=== PATIENT | male | born 2000 | race African-American/Black ===

== ENCOUNTER 2018-09-20 05:27 | Emergency (ER) | payer MEDICAID ==
[~2018-09-20] VITALS: Ht 175.3 cm; Wt 69.0 kg
[2018-09-20 05:43] VITALS: BP 136/71
[2018-09-20] MEDS ORDERED: PREDNISONE 20MG TABLET PO STA (05:58)
[2018-09-20] MEDS ORDERED: IPRATROPIUM BROMIDE (0.02%) 0.5MG/2.5ML NEB HHN STA (05:58)
[2018-09-20] MEDS ORDERED: ALBUTEROL (0.083%) 2.5MG/3ML NEB HHN STA (05:58)
== END 2018-09-20 07:07 | disposition home or self-care (01) ==
LOC: ER 05:27
DX: J45.901 Unspecified asthma with (acute) exacerbation (principal)
CPT/HCPCS: 94640; 99283; J7512; J7611; Z7610

== ENCOUNTER 2018-12-07 05:11 | Emergency (ER) | payer MEDICAID ==
[~2018-12-07] VITALS: Ht 175.3 cm; Wt 61.0 kg
[2018-12-07] MEDS ORDERED: PREDNISONE 20MG TABLET PO STA (06:12)
[2018-12-07] MEDS ORDERED: IPRATROPIUM BROMIDE (0.02%) 0.5MG/2.5ML NEB HHN STA (06:12)
[2018-12-07] MEDS ORDERED: ALBUTEROL (0.083%) 2.5MG/3ML NEB HHN STA (06:12)
[2018-12-07 09:19] VITALS: BP 116/76
== END 2018-12-07 09:20 | disposition home or self-care (01) ==
LOC: ER 05:11
DX: J45.901 Unspecified asthma with (acute) exacerbation (principal)
CPT/HCPCS: 94644; 99285; J7512; J7611; Z7610

== ENCOUNTER 2018-12-17 15:03 | Emergency (ER) | payer MEDICAID ==
[~2018-12-17] VITALS: Ht 177.8 cm; Wt 63.0 kg
[2018-12-17] MEDS ORDERED: ALBUTEROL (0.083%) 2.5MG/3ML NEB HHN STA (16:01)
[2018-12-17] MEDS ORDERED: IPRATROPIUM BROMIDE (0.02%) 0.5MG/2.5ML NEB HHN STA (16:01)
[2018-12-17] MEDS ORDERED: PREDNISONE 20MG TABLET PO STA (16:01)
[2018-12-17 17:12] VITALS: BP 122/77
== END 2018-12-17 17:13 | disposition home or self-care (01) ==
LOC: ER 15:03
DX: J45.901 Unspecified asthma with (acute) exacerbation (principal)
CPT/HCPCS: 94644; 99285; J7512; J7611; Z7610

== ENCOUNTER 2019-03-05 09:18 | Emergency (ER) | payer MEDICAID ==
[~2019-03-05] VITALS: Ht 177.8 cm; Wt 60.0 kg
[2019-03-05] MEDS ORDERED: IPRATROPIUM BROMIDE (0.02%) 0.5MG/2.5ML NEB HHN STA (11:24)
[2019-03-05] MEDS ORDERED: ALBUTEROL (0.083%) 2.5MG/3ML NEB HHN STA (11:24)
[2019-03-05] MEDS ORDERED: METHYLPREDNISOLONE SOD SUCC 125 MG/2 ML VIAL IM STA (11:24)
[2019-03-05 12:40] VITALS: BP 123/71
== END 2019-03-05 12:30 | disposition home or self-care (01) ==
LOC: ER 09:18
DX: J45.901 Unspecified asthma with (acute) exacerbation (principal)
CPT/HCPCS: 96372; 99283; J2930; J7611

== ENCOUNTER 2019-04-19 04:55 | Emergency (ER) | payer MEDICAID ==
[~2019-04-19] VITALS: Ht 175.3 cm; Wt 66.0 kg
[2019-04-19 06:21] VITALS: BP 106/73
== END 2019-04-19 06:22 | disposition home or self-care (01) ==
LOC: ER 04:55
DX: J45.901 Unspecified asthma with (acute) exacerbation (principal)
CPT/HCPCS: 99283

== ENCOUNTER 2019-05-05 20:40 | Emergency (ER) | payer MEDICAID ==
[~2019-05-05] VITALS: Ht 175.3 cm; Wt 68.0 kg
[2019-05-05] MEDS ORDERED: IPRATROPIUM BROMIDE (0.02%) 0.5MG/2.5ML NEB HHN STA (22:08)
[2019-05-05] MEDS ORDERED: ALBUTEROL (0.083%) 2.5MG/3ML NEB HHN STA (22:08)
[2019-05-05] MEDS ORDERED: PREDNISONE 20MG TABLET PO STA (22:08)
[2019-05-05] MEDS ORDERED: IPRATROPIUM/ALBUTEROL 0.5-3(2.5)MG/3ML NEB ONE (22:22)
[2019-05-05] MEDS ORDERED: ALBUTEROL (0.5%) 2.5MG/0.5ML NEB HHN ONE (22:22)
[2019-05-05 23:55] VITALS: BP 122/89
== END 2019-05-05 23:55 | disposition home or self-care (01) ==
LOC: ER 20:40
DX: J45.901 Unspecified asthma with (acute) exacerbation (principal)
CPT/HCPCS: 94644; 99285; J7512; J7610; Z7610

== ENCOUNTER 2019-06-04 14:26 | Emergency (ER) | payer MEDICAID ==
[~2019-06-04] VITALS: Ht 175.3 cm; Wt 64.0 kg
[2019-06-04] MEDS ORDERED: IPRATROPIUM/ALBUTEROL 0.5-3(2.5)MG/3ML NEB HHN ONE (15:45)
[2019-06-04] MEDS ORDERED: LIDOCAINE HCL 1% 20ML VIAL (Pyxis) INJ INFIL ONE (15:45)
[2019-06-04] MEDS ORDERED: PENICILLIN G BENZATHINE 2,400,000 UNITS/4ML SYR IM ONE (15:45)
[2019-06-04] MEDS ORDERED: AZITHROMYCIN 500 MG TABLET PO ONE (15:45)
[2019-06-04] MEDS ORDERED: CEFTRIAXONE SODIUM 250 MG/VIAL IM ONE (15:45)
[2019-06-04 16:39] VITALS: BP 153/86
== END 2019-06-04 16:39 | disposition home or self-care (01) ==
LOC: ER 14:26
DX: A53.9 Syphilis, unspecified (principal); N34.2 Other urethritis; J45.901 Unspecified asthma with (acute) exacerbation
CPT/HCPCS: 94640; 96372; 99284; J0561; J0696; J3490; J7610; Z7610

== ENCOUNTER 2019-06-27 14:44 | Emergency (ER) | payer SELFPAY ==
[~2019-06-27] VITALS: Ht 175.3 cm; Wt 62.0 kg
[2019-06-27 14:53] VITALS: BP 112/62
== END 2019-06-27 15:22 | disposition home or self-care (01) ==
LOC: ER 14:44
DX: J45.909 Unspecified asthma, uncomplicated (principal)
CPT/HCPCS: 99282

== ENCOUNTER 2020-02-17 19:27 | Emergency (ER) | payer MEDICAID ==
[~2020-02-17] VITALS: Ht 177.8 cm; Wt 63.0 kg
[2020-02-17 20:21] VITALS: BP 126/65
== END 2020-02-17 20:22 | disposition home or self-care (01) ==
LOC: ER 19:27
DX: J45.909 Unspecified asthma, uncomplicated (principal); Z76.0 Encounter for issue of repeat prescription
CPT/HCPCS: 99283

== ENCOUNTER 2020-03-01 21:01 | Emergency (ER) | payer MEDICAID ==
[~2020-03-01] VITALS: Ht 177.8 cm; Wt 64.0 kg
[2020-03-01 22:28] VITALS: BP 127/82
== END 2020-03-01 22:30 | disposition home or self-care (01) ==
LOC: ER 21:01
DX: Z76.0 Encounter for issue of repeat prescription (principal); J45.909 Unspecified asthma, uncomplicated
CPT/HCPCS: 99283

== ENCOUNTER 2020-05-29 10:21 | Emergency (ER) | payer MEDICAID ==
[~2020-05-29] VITALS: Ht 177.8 cm; Wt 69.0 kg
[2020-05-29] MEDS ORDERED: LIDOCAINE HCL 1% 20ML VIAL (Pyxis) INJ INFIL ONE (11:00)
[2020-05-29] MEDS ORDERED: CEFTRIAXONE SODIUM 500 MG/VIAL IM ONE (11:00)
[2020-05-29] MEDS ORDERED: DOXYCYCLINE HYCLATE 100MG CAPSULE PO ONE (11:00)
[2020-05-29 11:16] LABS: CLARITY URINE CLEAR (CLEAR); COLOR URINE YELLOW (YELLOW); KETONES URINE NEGATIVE (NEGATIVE); LEUKOCYTE ESTERASE URINE NEGATIVE (NEGATIVE); NITRITE URINE NEGATIVE (NEGATIVE); OCCULT BLOOD URINE NEGATIVE (NEGATIVE); PROTEIN URINE NEGATIVE (NEGATIVE); SPECIFIC GRAVITY URINE 1.006 (1.005-1.030); UROBILINOGEN URINE 0.2 E.U./dL (0.2-1.0)
[2020-05-29] MEDS ORDERED: ALBU6.7H9 INH (11:22)
[2020-05-29] MEDS ORDERED: DOXY100C2 MT (11:22)
[2020-05-29 11:33] VITALS: BP 112/78
[2020-05-29] MEDS ORDERED: DOXY100C42 MT (22:28)
[2020-06-02 04:07] LABS: NEISSERIA GONORRHOEAE NAA Negative (Negative)
== END 2020-05-29 11:36 | disposition home or self-care (01) ==
LOC: ER 10:21
DX: Z20.2 Contact with and (suspected) exposure to infections with a predominantly sexual mode of transmission (principal); J45.909 Unspecified asthma, uncomplicated; Z76.0 Encounter for issue of repeat prescription
CPT/HCPCS: 81003; 86592; 87491; 87591; 99283; J3490; J0696

== ENCOUNTER 2020-05-29 22:13 | Emergency (ER) | payer MEDICAID ==
[~2020-05-29] VITALS: Ht 175.3 cm; Wt 68.0 kg
[~2020-05-29 22:13] MED LIST: ALBU6.7H9 INH; DOXY100C2 MT
[2020-05-29] MEDS ORDERED: DOXY100C42 MT (22:28)
[2020-05-29 22:39] VITALS: BP 110/61
== END 2020-05-29 22:39 | disposition home or self-care (01) ==
LOC: ER 22:13
DX: Z00.00 Encounter for general adult medical examination without abnormal findings (principal); Z79.899 Other long term (current) drug therapy; J45.909 Unspecified asthma, uncomplicated
CPT/HCPCS: 99282

== ENCOUNTER 2020-10-19 05:11 | Emergency (ER) | payer MEDICAID ==
[~2020-10-19 05:11] MED LIST changes: +DOXY100C42 MT
== END 2020-10-19 06:16 | disposition left against medical advice (07) ==
LOC: ER 05:33
DX: Z53.21 Procedure and treatment not carried out due to patient leaving prior to being seen by health care provider (principal)

== ENCOUNTER 2020-10-19 23:13 | Emergency (ER) | payer MEDICAID | END 2020-10-20 02:09 | disposition left against medical advice (07) | LOC: ER 23:13 | DX: Z53.21 Procedure and treatment not carried out due to patient leaving prior to being seen by health care provider (principal) ==

== ENCOUNTER 2020-11-02 00:09 | Emergency (ER) | payer MEDICAID ==
[~2020-11-02] VITALS: Ht 177.8 cm; Wt 69.0 kg
[2020-11-02 00:36] VITALS: BP 117/58
[2020-11-02] MEDS ORDERED: ALBU6.7H9 INH (00:36)
== END 2020-11-02 00:48 | disposition home or self-care (01) ==
LOC: ER 00:09
DX: J45.909 Unspecified asthma, uncomplicated (principal); Z76.0 Encounter for issue of repeat prescription; Z79.899 Other long term (current) drug therapy
CPT/HCPCS: 99283

== ENCOUNTER 2020-12-16 21:45 | Emergency (ER) | payer MEDICAID ==
[~2020-12-16] VITALS: Ht 175.3 cm; Wt 66.0 kg
[~2020-12-16 21:45] MED LIST changes: +DOXY-326 MT; -DOXY100C2 MT; -DOXY100C42 MT; +DOXY100C5 MT
[2020-12-16] MEDS ORDERED: ALBU6.7H9 INH (22:56)
[2020-12-16 23:00] VITALS: BP 121/71
== END 2020-12-16 23:12 | disposition home or self-care (01) ==
LOC: ER 21:45
DX: Z76.0 Encounter for issue of repeat prescription (principal); J45.909 Unspecified asthma, uncomplicated
CPT/HCPCS: 99283

== ENCOUNTER 2021-01-18 21:52 | Emergency (ER) | payer MEDICAID ==
[~2021-01-18] VITALS: Ht 175.3 cm; Wt 66.0 kg
[2021-01-18 22:15] VITALS: BP 105/73
[2021-01-18] MEDS ORDERED: ALBU6.7H15 INH (22:25)
== END 2021-01-18 22:27 | disposition home or self-care (01) ==
LOC: ER 21:52
DX: J45.909 Unspecified asthma, uncomplicated (principal); Z79.899 Other long term (current) drug therapy
CPT/HCPCS: 99283

== ENCOUNTER 2021-03-30 18:16 | Emergency (ER) | payer MEDICAID ==
[~2021-03-30] VITALS: Ht 172.7 cm; Wt 64.0 kg
[~2021-03-30 18:16] MED LIST changes: +ALBU6.7H15 INH
[2021-03-30 18:19] VITALS: BP 117/82
[2021-03-30] MEDS ORDERED: ALBU6.7H9 INH (18:45)
== END 2021-03-30 18:55 | disposition home or self-care (01) ==
LOC: ER 18:16
DX: Z76.0 Encounter for issue of repeat prescription (principal); J45.909 Unspecified asthma, uncomplicated
CPT/HCPCS: 99281

== ENCOUNTER 2021-07-19 03:47 | Emergency (ER) | payer MEDICAID ==
[~2021-07-19] VITALS: Ht 175.3 cm; Wt 60.6 kg
[2021-07-19 03:59] VITALS: BP 114/83
[2021-07-19] MEDS ORDERED: ALBU6.7H15 INH (04:02)
== END 2021-07-19 04:00 | disposition home or self-care (01) ==
LOC: ER 03:47
DX: Z76.0 Encounter for issue of repeat prescription (principal); J45.909 Unspecified asthma, uncomplicated
CPT/HCPCS: 99283

== ENCOUNTER 2021-08-18 02:11 | Emergency (ER) | payer MEDICAID ==
[~2021-08-18] VITALS: Ht 177.8 cm; Wt 60.9 kg
[2021-08-18 02:22] VITALS: BP 123/58
== END 2021-08-18 08:43 | disposition left against medical advice (07) ==
LOC: ER 02:11
DX: Z53.21 Procedure and treatment not carried out due to patient leaving prior to being seen by health care provider (principal)

== ENCOUNTER 2021-10-22 12:00 | Emergency (ER) | payer MEDICAID ==
[~2021-10-22] VITALS: Ht 177.8 cm; Wt 66.0 kg
[2021-10-22 12:04] VITALS: BP 107/74
[2021-10-22] MEDS ORDERED: LIDOCAINE HCL 1% 20ML VIAL (Pyxis) INJ INFIL ONE (14:00)
[2021-10-22] MEDS ORDERED: CEFTRIAXONE SODIUM 500 MG/VIAL IM ONE (14:00)
[2021-10-22] MEDS ORDERED: DOXY-326 MT (14:14)
[2021-10-22] MEDS ORDERED: ALBU6.7H9 INH (14:14)
[2021-10-25 04:10] LABS: NEISSERIA GONORRHOEAE NAA Negative (Negative)
== END 2021-10-22 15:24 | disposition home or self-care (01) ==
LOC: ER 12:00
DX: Z11.3 Encounter for screening for infections with a predominantly sexual mode of transmission (principal); Z76.0 Encounter for issue of repeat prescription; J45.909 Unspecified asthma, uncomplicated
CPT/HCPCS: 87491; 87591; 96372; 99283; J0696; J3490

== ENCOUNTER 2022-01-27 19:01 | Emergency (ER) | payer MEDICAID ==
[~2022-01-27] VITALS: Ht 175.3 cm; Wt 65.0 kg
[~2022-01-27 19:01] MED LIST changes: +ALBU6.7H3 INH; -ALBU6.7H9 INH
[2022-01-28] MEDS ORDERED: CEFTRIAXONE SODIUM 500 MG/VIAL IM ONE (00:15)
[2022-01-28] MEDS ORDERED: LIDOCAINE HCL 1% 20ML VIAL (Pyxis) INJ INFIL ONE (00:15)
[2022-01-28] MEDS ORDERED: DOXY100T28 PO (00:33)
[2022-01-28 00:43] LABS: CLARITY URINE CLOUDY (CLEAR); COLOR URINE YELLOW (YELLOW); KETONES URINE TRACE (NEGATIVE); LEUKOCYTE ESTERASE URINE TRACE (NEGATIVE); NITRITE URINE NEGATIVE (NEGATIVE); OCCULT BLOOD URINE NEGATIVE (NEGATIVE); PROTEIN URINE TRACE (NEGATIVE); SPECIFIC GRAVITY URINE 1.033 (1.005-1.030)
[2022-01-28 01:00] VITALS: BP 101/78
[2022-01-31 04:09] LABS: NEISSERIA GONORRHOEAE NAA Negative (Negative)
== END 2022-01-28 01:00 | disposition home or self-care (01) ==
LOC: ER 19:11
DX: N34.2 Other urethritis (principal); J45.909 Unspecified asthma, uncomplicated; Z79.899 Other long term (current) drug therapy
CPT/HCPCS: 81003; 87491; 87591; 96372; 99283; J0696